=== PATIENT | male | born 1995 | race Caucasian/White ===

== ENCOUNTER 2017-04-30 21:43 | Emergency (ER) | payer SELFPAY ==
--- NOTE | 2017-04-30 23:06 | ER Document Report ---
HPI - HPI Pain Level: 3 Notes: Patient is a 21-year-old male with no significant past medical history who presents to the ED complaining of fever, body ache, nausea without vomiting, nasal congestion/discharge that began today. Patient states that he was sent home from work and needs a work note. Patient has not taken any medications for his symptoms. Patient states that he is eating and drinking without any difficulties, but does have a decreased p.o. solid intake. He is urinating normally and having normal bowel movements. Denies any drug allergies. No other significant cardiopulmonary medical history. Denies any headache, neck pain, sore throat, chest pain, palpitations, syncope, cough, shortness of breath , wheeze, dyspnea, abdominal pain, vomiting/diarrhea, urinary retention, dysuria , hematuria, or rash. - ROS Systems Reviewed and Negative: Yes All other systems reviewed and negative Past Medical History - Social History Smoking Status: Never Smoker Family History: Reviewed & Not Pertinent Vertical Provider Document - CONSTITUTIONAL Agree With Documented VS: Yes Notes: PHYSICAL EXAMINATION: GENERAL: Well-appearing, well-nourished and in no acute distress. A&Ox4. Answers questions appropriately. Moves comfortably w/o notable distress HEAD: Atraumatic, normocephalic. EYES: Pupils equal round and reactive to light, extraocular movements intact, sclera anicteric, conjunctiva are normal. ENT: EAC clear b/l. TM's intact b/l without erythema, fluid, or perforation. Nares patent and with clear discharge. oropharynx no erythema without exudates. No tonsilar hypertrophy without erythema or exudate. No palatine shift. Uvula midline. No tongue protrusion. No drooling, hoarseness, or airway compromise. Moist mucous membranes. No sinus tenderness. NECK: Normal range of motion, supple without lymphadenopathy. No rigidity/ meningismus. LUNGS: Breath sounds clear to auscultation bilaterally and equal. No wheezes rales or rhonchi. No retractions HEART: Regular rate and rhythm without murmurs, rubs, gallops. ABDOMEN: Soft, nontender, nondistended abdomen. No guarding, no rebound. No masses appreciated. Normal bowel sounds present. No CVA tenderness bilaterally. No hepatosplenomegaly. NEUROLOGICAL: Normal speech, normal gait. Normal sensory, motor exams PSYCH: Normal mood, normal affect. SKIN: Warm, Dry, normal turgor, no rashes or lesions noted. - INFECTION CONTROL TRAVEL OUTSIDE OF THE [place] IN LAST 30 DAYS: No - RESPIRATORY O2 Sat by Pulse Oximetry: 100 Course - Re-evaluation Re-evalutation: 04/30/17 23:04 Patient is an afebrile, well-hydrated, 21-year-old male who presents to the ED with viral syndrome, suspect influenza. Vitals are stable. PE is otherwise unremarkable. No labs or imaging warranted at this time based on H&P. Patient has no significant cardiopulmonary or immunocompromised medical conditions. Patient's lungs are clear to auscultation bilaterally without tachycardia, hypoxia, or tachypnea. Patient is tolerating p.o. without any difficulties. Thoroughly reviewed the risks, benefits, potential side effects, estimated cost without insurance with patient. After thorough review, patient declined Tamiflu at this time. Low suspicion for any meningitis, sepsis, peritonsillar/ pharyngeal abscess, respiratory compromise, severe dehydration, or other emergent systemic condition at this time. Patient is aware this condition can change from initial presentation and he needs to monitor symptoms closely. Toradol given IM today. Patient states that he has Zofran at home that he can use. Conservative measures otherwise for symptoms. Recheck with your PCM in 3- 5 days. Return to the ED with any worsening/concerning symptoms otherwise as reviewed in discharge. Patient is in agreement. - Vital Signs Vital signs: Temp Pulse Resp BP Pulse Ox 99.1 F 96 18 112/62 100 04/30/17 22:03 04/30/17 22:03 04/30/17 22:03 04/30/17 22:03 04/30/17 22:03 Discharge - Discharge Clinical Impression: Viral syndrome, Influenza Condition: Stable Disposition: HOME, SELF-CARE Instructions: Viral Syndrome ([facility]), Influenza ([facility]) Additional Instructions: Maintain adequate fluid intake Take meds as directed tylenol/ibuprofen as needed zofran as needed over the counter cold medication as needed for symptoms Humidified air may help Wash your hands regularly Wear a mask when coughing F/u: with your PCM in 3-5 days for a recheck Return to the ED with any fever, worsening pain, chest pain, palpitations, syncope, worsening URENA, neck pain/stiffness, shortness of breath, wheezing, drooling, trouble swallowing/breathing, abdominal pain, n/v/d, rash, or worsening/concerning symptoms otherwise. Forms: Return to Work Referrals: [facility] [Provider Group] - Follow up as needed [facility] [Provider Group] - Follow up as needed
[2017-04-30 23:33] VITALS: BP 119/74
== END 2017-04-30 23:33 | disposition home or self-care (01) ==
LOC: ER 21:43
DX: J11.1 Influenza due to unidentified influenza virus with other respiratory manifestations (principal); B97.89 Other viral agents as the cause of diseases classified elsewhere; R50.9 Fever, unspecified; M79.1 Myalgia; R11.0 Nausea; R09.81 Nasal congestion; R09.89 Other specified symptoms and signs involving the circulatory and respiratory systems
CPT/HCPCS: 99283

== ENCOUNTER 2017-05-15 13:24 | Emergency (ER) | payer SELFPAY ==
[2017-05-15 13:31] VITALS: BP 137/83
[2017-05-15] MEDS ORDERED: ONDANSETRON 4 MG TAB.RAPDIS PO ONE (14:53)
--- NOTE | 2017-05-15 14:53 | ER Document Report ---
ED General - General Chief Complaint: Nausea/Vomiting/Diarrhea Stated Complaint: NAUSEA,VOMITING,DIARRHEA Time Seen by Provider: 05/15/17 14:34 Notes: Patient presents with several episodes of nausea vomiting and diarrhea since last night. Denies any recent travel or camping. Denies any red or black in his stools or vomit. He has had approximately 2 episodes of vomiting and 6-7 episodes of diarrhea since last night. No known medical problems. He states he has diffuse abdominal cramping but no localized pain anywhere. TRAVEL OUTSIDE OF THE [place] IN LAST 30 DAYS: No - Related Data Allergies/Adverse Reactions: No Known Allergies Allergy (Verified 05/15/17 13:25) Past Medical History - Social History Smoking Status: Current Some Day Smoker Chew tobacco use (# tins/day): No Frequency of alcohol use: None Drug Abuse: None Family History: Reviewed & Not Pertinent Patient has suicidal ideation: No Patient has homicidal ideation: No Renal/ Medical History: Denies: Hx Peritoneal Dialysis Review of Systems - Review of Systems Constitutional: No symptoms reported EENT: No symptoms reported Cardiovascular: No symptoms reported Respiratory: No symptoms reported Gastrointestinal: No symptoms reported, Abdominal pain - Crampy intermittent, Diarrhea, Nausea, Vomiting Genitourinary: No symptoms reported Male Genitourinary: No symptoms reported Musculoskeletal: No symptoms reported Skin: No symptoms reported Hematologic/Lymphatic: No symptoms reported Neurological/Psychological: No symptoms reported Physical Exam - Vital signs Vitals: Temp Pulse Resp BP Pulse Ox 97.4 F 104 H 18 137/83 H 99 05/15/17 13:30 05/15/17 13:30 05/15/17 13:30 05/15/17 13:30 05/15/17 13:30 - General General appearance: Appears well, Alert - HEENT Head: Normocephalic, Atraumatic - Respiratory Respiratory status: No respiratory distress Chest status: Nontender Breath sounds: Normal - Cardiovascular Rhythm: Tachycardia Heart sounds: Normal auscultation Murmur: No Friction rub: No - Abdominal Inspection: Normal Distension: No distension Bowel sounds: Normal Tenderness: Nontender - Back Back: Normal - Neurological Neuro grossly intact: Yes Cognition: Normal - Psychological Associated symptoms: Normal affect Course - Re-evaluation Re-evalutation: 05/15/17 14:51 Well-appearing patient in no distress presents with intermittent nausea vomiting and diarrhea. Patient is young healthy and no medical problems. Will provide Zofran for nausea and vomiting and instructed patient to take over-the- counter Pepto-Bismol for diarrhea will provide work excuse. Return precautions provided - Vital Signs Vital signs: Temp Pulse Resp BP Pulse Ox 97.4 F 104 H 18 137/83 H 99 05/15/17 13:30 05/15/17 13:30 05/15/17 13:30 05/15/17 13:30 05/15/17 13:30 Discharge - Discharge Clinical Impression: Nausea & vomiting Qualifiers: Vomiting type: unspecified Vomiting Intractability: unspecified Qualified Code( s): R11.2 - Nausea with vomiting, unspecified Diarrhea Qualifiers: Diarrhea type: unspecified type Qualified Code(s): R19.7 - Diarrhea, unspecified Disposition: HOME, SELF-CARE Instructions: Diarrhea, Nonspecific ([facility]), Vomiting ([facility]) Forms: Return to Work
== END 2017-05-15 15:00 | disposition home or self-care (01) ==
LOC: ER 13:24
DX: R11.2 Nausea with vomiting, unspecified (principal); R19.7 Diarrhea, unspecified; F17.200 Nicotine dependence, unspecified, uncomplicated
CPT/HCPCS: 99283; S0119

== ENCOUNTER 2017-11-08 07:45 | Emergency (ER) | payer SELFPAY ==
[2017-11-08 07:53] VITALS: BP 138/89
--- NOTE | 2017-11-08 08:09 | ER Document Report ---
HPI - HPI Patient complains to provider of: Sunburn Onset: Other - Last Tuesday Quality of pain: Other - ttp Severity: Mild Pain Level: 1 Context: Patient presents to the emergency department with complaints of slight swelling to the bridge of his nose his forehead. Patient reports he received a severe sunburn at work last Tuesday. He reports he was not wearing sunblock and did not have a hat on. 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 Patient reports he still went to the beach on Tuesday. Again he did not wear sunblock. He did not work yesterday because of the sunburn. Today he woke up and noted little bit of swelling to the bridge of his nose. He denies fever nausea vomiting diarrhea. Denies allergies. He has not applied ice to the area. He reports he has been putting aloe to the sunburn. Associated Symptoms: None Exacerbated by: Denies Relieved by: Denies Similar symptoms previously: No Recently seen / treated by doctor: No Past Medical History - General Information source: Patient - Social History Smoking Status: Unknown if Ever Smoked Cigarette use (# per day): No Frequency of alcohol use: None Drug Abuse: None Occupation: Temporary work Family History: Reviewed & Not Pertinent Patient has suicidal ideation: No Patient has homicidal ideation: No - Medical History Medical History: Negative Renal/ Medical History: Denies: Hx Peritoneal Dialysis Surgical Hx: Negative Vertical Provider Document - CONSTITUTIONAL Agree With Documented VS: Yes Exam Limitations: No Limitations General Appearance: WD/WN, No Apparent Distress - Nontoxic looking - INFECTION CONTROL TRAVEL OUTSIDE OF THE [place] IN LAST 30 DAYS: No - HEENT HEENT: Atraumatic, Normocephalic. negative: Conjuctival Injection - NECK Neck: Normal Inspection, Supple - RESPIRATORY Respiratory: No Respiratory Distress - CARDIOVASCULAR Cardiovascular: Regular Rate - MUSCULOSKELETAL/EXTREMETIES Musculoskeletal/Extremeties: MAEW, FROM, Non-Tender - NEURO Level of Consciousness: Awake, Alert, Appropriate Motor/Sensory: No Motor Deficit - DERM Integumentary: Warm, Dry Adult Front & Back Diagram: 1 - sunburn, scaling, no warmth, no discharge no oozing 2 - very slight swelling to bridge of nose, bilateral inner upper eyelids Course - Re-evaluation Re-evalutation: 11/08/17 08:44 Patient was instructed to stay out of the sun and wear sunblock if needs to go in the sun and to wear hat. He was also instructed not to pick at his sunburn. Apply aloe, also apply gel cool pack across his eyes. She verbalized understanding. - Vital Signs Vital signs: Temp Pulse Resp BP Pulse Ox 98.9 F 75 14 138/89 H 99 11/08/17 07:48 11/08/17 07:48 11/08/17 07:48 11/08/17 07:48 11/08/17 07:48 Discharge - Discharge Clinical Impression: Sunburn Condition: Stable Disposition: HOME, SELF-CARE Instructions: Sunburn ([facility]) Additional Instructions: *You have been treated for a sunburn *Stay out of the sun, use sunblock and wear a hat when you need to go in the sun *Monitor your skin for signs of infection such as increasing pain, redness, swelling, warmth *Apply cool pack as discussed *Follow up with a primary care provider within 5 days for a recheck *Return to ED for signs of infection, worsening condition, concerns, changes, needs Monitor your blood pressure. Your blood pressure was elevated today. This may be because you were anxious, in pain or because you need medication. It is important to follow up with your primary care provider for full evaluation. Forms: Elevated Blood Pressure
== END 2017-11-08 08:51 | disposition home or self-care (01) ==
LOC: ER 07:45
DX: L55.9 Sunburn, unspecified (principal); R22.0 Localized swelling, mass and lump, head
CPT/HCPCS: 99282